=== PATIENT | male | born 1970 | race Asian ===

== ENCOUNTER → 2016-09-10 | Outpatient (CLI) | payer BC ==
[~2016-09-10] MED LIST: CARV6.2545; SIMV20TA PO
[2016-09-10 06:28] LABS: ADD SCAN DIFF NO
[2016-09-10 07:01] LABS: BASOPHILS % 0.6 % (0.0-2.0); EOSINOPHILS # 0.3 10^3/ul (0.0-0.5); EOSINOPHILS % 5.1 % (0.0-7.0); HEMOGLOBIN 14.8 g/dl (14.0-18.0); LYMPHOCYTES # 2.4 10^3/ul (0.8-2.9); LYMPHOCYTES % 45.7 % (15.0-51.0); MEAN CORPUSCULAR HGB CONC 32.9 g/dl (32.0-37.0); MEAN CORPUSCULAR VOLUME 88.1 fl (82.0-101.0); MEAN PLATELET VOLUME 11.1 fl (7.4-10.4); MONOCYTE # 0.5 10^3/ul (0.3-0.9); MONOCYTES % 9.5 % (0.0-11.0); NEUTROPHIL # 2.1 10^3/ul (1.6-7.5); NEUTROPHILS % 38.7 % (39.0-77.0); PLATELET COUNT 176 10^3/UL (140-415); RED BLOOD COUNT 5.11 10^6/ul (4.70-6.10); RED CELL DISTRIBUTION WIDTH 12.6 % (11.5-14.5); WHITE BLOOD COUNT 5.3 10^3/ul (4.8-10.8)
[2016-09-10 07:14] LABS: ALBUMIN 4.6 g/dl (3.3-4.9); ALBUMIN/GLOBULIN RATIO 1.7; BILIRUBIN,INDIRECT 0.6 mg/dl (0-1.1); BILIRUBIN,TOTAL 0.6 mg/dl (0.2-1.3); CALCIUM 9.4 mg/dl (8.4-10.2); CHOL/HDL RATIO 5.7 RATIO; CREATININE 0.72 mg/dl (0.61-1.24); POTASSIUM 4.2 mmol/L (3.5-5.1); TOTAL PROTEIN 7.3 g/dl (6.1-8.1)
[2016-09-10 07:41] LABS: PROSTATE SPECIFIC ANTIGEN 0.4 ng/ml (0.0-4.0)
== END | disposition home or self-care (01) ==
LOC: LAB 05:55
PROVIDERS: ATTEND Internal Medicine
DX: N40.0 Benign prostatic hyperplasia without lower urinary tract symptoms (principal); E78.5 Hyperlipidemia, unspecified; R73.03 Prediabetes
CPT/HCPCS: 80053; 80061; 83036; 84153; 84154; 85025

== ENCOUNTER 2017-01-19 05:50 | Day surgery (SDC) | payer BC ==
[~2017-01-19] VITALS: Ht 167.6 cm; Wt 79.3 kg
[2017-01-19 07:14] VITALS: Ht 167.6 cm; Wt 79.3 kg
[2017-01-19 07:57] VITALS: BP 112/59; PULSE 84; RESP 15
--- NOTE | 2017-01-19 08:34 | OPPN ---
Date/Time of Note Date/Time of Note DATE: 01/19/17 TIME: 08:32 Operative Report Preoperative Diagnosis Screening Postoperative Diagnosis Small transverse colon polyp was removed Internal hemorrhoids Mild diverticulosis of the colon Operation/Procedure Performed Colonoscopy and biopsy Surgeon see signature line community program assistant None Anesthesia: moderate sedation Estimated blood loss: none Transfusion Required none Specimen Transverse colon polyp Grafts/Implants none Complications none ANI ALBERTO MD Jan 19, 2017 08:34
[2017-01-19] MEDS ORDERED: FENTAnyl 50 MCG/ML VIAL ONE (08:40)
[2017-01-19] MEDS ORDERED: MIDAZOLAM 1 MG/ML 2 ML INJ ONE ×2 (08:40)
[2017-01-19 08:45] VITALS: BP 109/68; RESP 14
--- NOTE | 2017-01-19 12:03 | GILP ---
DATE OF PROCEDURE: NAME OF PROCEDURES: Colonoscopy and biopsy. SURGEON: Ani Mcgee MD PREOPERATIVE DIAGNOSIS: Screening colonoscopy. POSTOPERATIVE DIAGNOSES 1. Colonoscopy all the way to the cecum. 2. Small transverse colon polyp was removed with biopsy forceps. 3. Mild diverticulosis of the colon. 4. Internal hemorrhoids. INDICATION FOR THE PROCEDURE: Mr. Ho Melendrez is a 46-year-old male patient who was sc heduled for screening colonoscopy. The procedure and possible complications were well explained to the patient. He understood and cons ented to the procedure. DESCRIPTION OF PROCEDURE: Under the influence of fentanyl and Versed, the colonoscope was carefully introduced in the rectum and under direct vision, it was advanced all the way to the cecum. FINDINGS: The patient had a small transverse colon polyp and it was removed using the biopsy forcep s. He was noted to have mild diverticulosis of the colon and internal hemorrhoids. He tolerated the procedure very well and there was no complication from the procedure. At the end o f the procedure, he was awake with stable vital signs and he was discharged home to the care of his family. IMPRESSION: Please see postoperative diagnoses. PLAN: 1. Await histopathology report. 2. Screening colonoscopy in 10 years. 3. The patient was advised to take high fiber diet. Dictated By: ANI CARRILLO/HEIDI Conf#: [id number] DID#: [id number]
== END 2017-01-19 14:19 | disposition home or self-care (01) ==
LOC: GIL 05:50
PROVIDERS: ATTEND Internal Medicine Gastroenterology
DX: Z12.11 Encounter for screening for malignant neoplasm of colon (principal); K64.8 Other hemorrhoids; K57.30 Diverticulosis of large intestine without perforation or abscess without bleeding; K63.5 Polyp of colon
CPT/HCPCS: 45380; J2250; J3010

== ENCOUNTER → 2018-04-02 | Outpatient (CLI) | END | disposition home or self-care (01) ==

== ENCOUNTER → 2018-10-17 | Outpatient (CLI) | payer BC | END | disposition home or self-care (01) | LOC: LAB 10:44 | PROVIDERS: ATTEND Internal Medicine | DX: R73.03 Prediabetes (principal); E55.9 Vitamin D deficiency, unspecified; E03.9 Hypothyroidism, unspecified; E78.5 Hyperlipidemia, unspecified | CPT/HCPCS: 80053; 80061; 81003; 82306; 83036; 84153; 84154; 84436; 84443; 85025 ==